=== PATIENT | male | born 1955 | race Caucasian/White ===

== ENCOUNTER 2017-09-09 06:38 | Day surgery (SDC) | payer BC ==
[2017-09-04 12:54] VITALS: BMI 33.9
[~2017-09-09 06:38] MED LIST: LACTATED RINGERS 1,000 ML IV SCH
[2017-09-09 07:14] VITALS: RESP 18; TEMP 98.8
[2017-09-09] MEDS ORDERED: LACTATED RINGERS 1,000 ML IV ONE ×2 (07:21)
[2017-09-09] MEDS ORDERED: fentaNYL (PF) 50 MCG/ML 2 ML AMP ONE (07:43)
[2017-09-09] MEDS ORDERED: PROPOFOL 10 MG/ML 20 ML VIAL IV ONE (07:43)
--- NOTE | 2017-09-09 08:02 | P.GSHP ---
History of Present Illness H&P Date: 09/09/17 Chief Complaint: Screening colonoscopy This is a 62-year-old male referred from Dr. Singh. Patient safe for screening colonoscopy. Patient a previous colonoscopy 7 years ago which was found of colon polyps. Past Medical History Past Medical History: Hyperlipidemia, Hypertension History of Any Multi-Drug Resistant Organisms: None Reported Past Surgical History: Tonsillectomy Additional Past Surgical History / Comment(s): colonoscopies Past Anesthesia/Blood Transfusion Reactions: No Reported Reaction Smoking Status: Never smoker - Past Family History Father Family Medical History: Cancer Additional Family Medical History / Comment(s): lung Mother Family Medical History: CVA/TIA, Dementia Medications and Allergies Home Medications Medication Instructions Recorded Confirmed Type Aspirin 81 mg PO DAILY 09/04/17 09/04/17 History Atorvastatin [Lipitor] 20 mg PO DAILY 09/04/17 09/04/17 History DULoxetine HCL [Cymbalta] 30 mg PO DAILY 09/04/17 09/04/17 History Ergocalciferol (Vitamin D2) 50,000 unit PO WHITTAKER 09/04/17 09/04/17 History [Vitamin D2] Ramipril [Altace] 10 mg PO DAILY 09/04/17 09/04/17 History amLODIPine [Norvasc] 10 mg PO HS 09/04/17 09/04/17 History cloNIDine HCL [Catapres] 0.1 mg PO BID 09/04/17 09/04/17 History Allergies Allergy/AdvReac Type Severity Reaction Status Date / Time sulfamethoxazole Allergy Unknown Verified 09/04/17 12:19 [From Bactrim] trimethoprim [From Bactrim] Allergy Unknown Verified 09/04/17 12:19 Surgical - Exam Vital Signs Temp Pulse Resp BP Pulse Ox 98.8 F 96 18 162/89 96 09/09/17 07:13 09/09/17 07:13 09/09/17 07:13 09/09/17 07:13 09/09/17 07:13 - General well developed, no distress - Eyes PERRL - ENT normal pinna - Neck no masses - Respiratory normal expansion - Cardiovascular Rhythm: regular - Abdomen Abdomen: soft, non tender Assessment and Plan Assessment: History of colon polyps. We'll perform colonoscopy.
--- NOTE | 2017-09-09 08:21 | P.OP ---
Date of Procedure: 09/09/17 Preoperative Diagnosis: Screening colonoscopy Postoperative Diagnosis: Normal colon Procedure(s) Performed: Colonoscopy Anesthesia: MAC Surgeon: Jose Manuel Orozco Pathology: none sent Condition: stable Disposition: PACU Description of Procedure: PROCEDURE: The patient was placed on the endoscopy table in the lateral position. Digital rectal examination was performed which revealed no abnormalities. The prostate was symmetrical without nodules. Flexible colonoscope was then placed in the patient's anus and passed throughout the entire colon. The ileocecal valve was visualized. The cecum, ascending, transverse, descending and sigmoid colon were normal. The rectum was normal as well. There were no masses, polyps or diverticula noted in the entire colon. SUMMARY OF FINDINGS: Normal colonoscopy.
[2017-09-09 08:58] VITALS: BP 144/87; PULSE 63
== END 2017-09-09 09:25 | disposition home or self-care (01) ==
LOC: ORWHC2ENDO 06:38
PROVIDERS: ATTEND Surgery
DX: Z12.11 Encounter for screening for malignant neoplasm of colon (principal); Z86.010 Personal history of colon polyps; E78.00 Pure hypercholesterolemia, unspecified; F34.1 Dysthymic disorder; E78.5 Hyperlipidemia, unspecified; I10 Essential (primary) hypertension; E55.9 Vitamin D deficiency, unspecified; Z79.82 Long term (current) use of aspirin; Z79.899 Other long term (current) drug therapy; Z88.2 Allergy status to sulfonamides
CPT/HCPCS: J3010; J2704; G0105

== ENCOUNTER → 2017-12-24 | Outpatient (CLI) | payer BC ==
--- NOTE | 2017-12-24 15:27 | CONS ---
CONSULTATION DATE OF SERVICE: 12/24/2017 A 62-year-old gentleman who has been evaluated in the [facility] for episodes of out of dream movements during the sleep, snoring and awakenings from sleep. HISTORY OF PRESENT ILLNESS/SLEEP-WAKE EVALUATION: Patient referred problem with out of dream movements for about 7 years and that happen several times a week. His sleep schedule now when he is retired from 11:30 and to get up around 7 or 8 a.m. Usually no problems with falling asleep, although he has a TV in bedroom. According to his , he snores. He mentions that he wakes up with a dry mouth. Restless leg, sleep talking. He has positive history of kicking, swinging, yelling, swearing, had several episodes of falling out of bed, even bark like door during the sleep. He mentioned that he wakes up from sleep 5 times with episodes of nocturia 5 times. During the day, patient feels sleepy. [place] Sleepiness Scale significantly increased to 13. He may fall asleep in the middle of the afternoon and evening while watching TV. He feels restored after the naps and he may see vivid dreams during the naps. No history of hypnagogic hallucinations. Many years ago episodes of sleep paralysis. No muscle weakness anywhere and the body's reaction of motions or laughing, but sometimes had some episodes of heaviness in his head and dizziness in reactions of laughing. PAST MEDICAL HISTORY: Hypertension, hyperlipidemia, anxiety. PAST SURGICAL HISTORY: Tonsillectomy. MEDICATIONS: Amlodipine, atorvastatin, Clonidine, duloxetine, ramipril, ergocalciferol, aspirin. SOCIAL HISTORY: Negative for smoking or using alcohol. FAMILY HISTORY: Positive for hypertension, heart problems, hyperlipidemia, stroke, arthritis, sinus problems, weakness when excited, snoring, pneumoniae, headaches, cancer, diabetes, restless legs. REVIEW OF SYSTEMS: Multiple awakenings from sleep with nocturia, out of dream movements, sleepiness during the day. PHYSICAL EXAM: gentleman without distress. BP 131/72, HR 74, RR 18, height 5, 11-1/2, weight 251.4. Body mass index 34.5. NECK: 18-1/4 inches in circumference. Temperature 97.6, oxygen saturation at room air 96%. OROPHARYNX: Extremely low position of soft palate. Mallampati IV. Slight restriction of nasal breathing. ABDOMEN: Slightly obese. Neck Supple, no JVD. Thyroid is not palpable. LUNGS Clear to percussion and to auscultation. Good air exchange. No wheezing or rhonchi. HEART S1, S2 regular. No murmurs, gallops, or rubs. EXTREMITIES No clubbing or cyanosis. [employer] N[employer] Awake, alert, and oriented X3. Cranial nerves 2 to 7 intact. There is no fasciculation or atrophy. noted. No focal deficits observed. IMPRESSION: 1. Multiple episodes of out of dream movements with several episodes of falling out of bed, most probably a REM sleep behavioral disorder. 2. Snoring, multiple awakenings from sleep with a dry mouth and nocturia, extremely low position of soft palate, Mallampati IV, wide neck 18-1/4 inches in circumference, obstructive sleep apnea-hypopnea syndrome. 3. Obesity, body mass index 34.5. 4. Hypertension. 5. Hyperlipidemia. 6. History of anxiety. 7. Status post tonsillectomy. 8. Excessive daytime sleepiness, [place] Sleepiness Scale increased to 13. 9. Differential diagnosis should include hypersomnia, may increase risk for REM sleep behavioral disorder. PLAN: 1. Polysomnography for evaluation of patient's breathing during sleep. 2. CPAP/BiPAP titration if sleep study confirms obstructive sleep apnea-hypopnea syndrome. 3. Preferable position during sleep on the side. 4. No driving if patient feels any sleepiness. 5. I will see patient for follow up visit to explain results of testing and following plan. 6. We discussed safety precautions with the patient related to possibility of REM sleep behavioral disorder, out of dream movements, preferably to put mattress on the floor, close door, close windows, no access to the fire at night or guns in the home. Thank you very much for referring this patient for consultation. Sincerely, Akshat Wells MD, PhD, FAASM Diplomat of [place] [employer] [place] [employer] [facility] [place] MMSANTOSL / MILENAN: [phone] /
== END | disposition home or self-care (01) ==
LOC: SLEEP 13:26
PROVIDERS: ATTEND Internal Medicine
DX: G47.33 Obstructive sleep apnea (adult) (pediatric) (principal); I10 Essential (primary) hypertension; E78.5 Hyperlipidemia, unspecified; F41.9 Anxiety disorder, unspecified; E66.9 Obesity, unspecified; Z68.34 Body mass index [BMI] 34.0-34.9, adult; Z90.89 Acquired absence of other organs; Z79.82 Long term (current) use of aspirin; Z79.899 Other long term (current) drug therapy
CPT/HCPCS: 99211

== ENCOUNTER → 2018-04-23 | Outpatient (CLI) | payer BC ==
--- NOTE | 2018-04-23 14:03 | MR ---
EXAMINATION TYPE: MR cervical spine wo con DATE OF EXAM: 04/23/2018 COMPARISON: None HISTORY: Other spondylosis with radiculopathy TECHNIQUE: Multiplanar, multisequence images of the cervical spine were acquired. FINDINGS: The cervical spine vertebral bodies maintain normal vertebral body height and alignment. Th ere bryan cisterna magna noted as well as mucosal thickening that appears polypoid partially visualize d within the left maxillary sinus. Cervical cord signal appears within normal limits. Discogenic endp late changes and multilevel disc desiccation are seen. C2-C3: There is a small central disc osteophyte complex without spinal canal stenosis or neural olivier inal narrowing. C3-C4: There is a broad-based disc bulge and uncovertebral hypertrophy with facet arthropathy creatin g moderate left neural foraminal narrowing. This also creates mild spinal canal stenosis. No right ne ural foraminal narrowing. C4-C5: There is a small central disc herniation superimposed upon a broad-based disc bulge with uncov ertebral hypertrophy and facet arthropathy creating moderate bilateral neural foraminal narrowing and mild spinal canal stenosis. C5-C6: There is a left paracentral disc herniation superimposed upon a broad-based disc bulge. Uncove rtebral hypertrophy and facet arthropathy also contribute to severe left and moderate right neural fo raminal narrowing and moderate spinal canal stenosis. Ligamentum flavum flavum buckling is also seen posteriorly. C6-C7: There is a broad-based disc bulge, facet arthropathy and ligamentum flavum buckling. This resu lts in mild spinal canal stenosis and moderate left neural foraminal narrowing. Right neuroforamen is patent. C7-T1: No evidence for degenerative disc disease. No disc bulge/herniation or protrusion. No Canal stenosis. Foramina are patent bilaterally. IMPRESSION: 1. Small central disc herniation at C4-C5 vertebral post upon a broad-based disc bulge with degenerat kaur disc disease create moderate bilateral neural foraminal narrowing and mild spinal canal stenosis. 2. Multilevel moderate degenerative disc disease of the cervical spine create variable degrees of jen ral foraminal narrowing and mild spinal canal stenosis at C3-C4 and C6-C7 with moderate spinal canal stenosis at C5-C6. 3. Partially visualized left maxillary sinus polypoid mucosal thickening and probable bryan cisterna m agna.
== END | disposition home or self-care (01) ==
LOC: RADMRIMAIN 13:07
PROVIDERS: ATTEND Internal Medicine
DX: M48.02 Spinal stenosis, cervical region (principal); M50.121 Cervical disc disorder at C4-C5 level with radiculopathy
CPT/HCPCS: 72141

== ENCOUNTER 2020-04-06 19:33 | Emergency (ER) | payer BC ==
[2020-04-06 19:38] VITALS: RESP 18
[2020-04-06] MEDS ORDERED: MAG HYDROX/AL HYDROX/SIMETH 30 ML, HYOSCYAMINE ELIXIR 10 ML, LIDOCAINE VISCOUS 2% 10 ML PO STA ×3 (19:50)
--- NOTE | 2020-04-06 20:14 | ED ---
General Adult HPI - General Chief complaint: Chest Pain Stated complaint: Chest Pain Time Seen by Provider: 04/06/20 19:40 Source: patient Mode of arrival: ambulatory Limitations: no limitations - History of Present Illness Initial comments: 64 year-old male patient presents to the emergency department for evaluation of chest discomfort. Patient states he started this morning with a "pressure" in her midepigastric and lower chest region. States it felt like he had to burp. He states that he has been belching throughout the day but it has not relieved the pressure. He denies any pain in his back. Denies nausea, vomiting, shortness of breath, or dizziness. He states he did take an omeprazole, tylenol, and tums today throughout the day without relief. He spoke to his physician who wanted him to come in for evaluation. He does have past history significant for hypertension and hyperlipidemia. Heart disease in his father and brother. Patient denies any recent rash, fever, chills, cough, diarrhea, constipation, back pain, numbness, tingling, dizziness, weakness, hematuria, dysuria, urinary urgency, urinary frequency, headache, visual changes, or any other complaints. - Related Data Home Medications Medication Instructions Recorded Confirmed Atorvastatin [Lipitor] 20 mg PO DAILY 09/04/17 04/06/20 Ergocalciferol (Vitamin D2) 50,000 unit PO WHITTAKER 09/04/17 04/06/20 [Vitamin D2] Ramipril [Altace] 10 mg PO DAILY 09/04/17 04/06/20 amLODIPine [Norvasc] 10 mg PO DAILY 09/04/17 04/06/20 cloNIDine HCL [Catapres] 0.1 mg PO BID 09/04/17 04/06/20 Acetaminophen Tab [Tylenol Tab] 500 mg PO Q6H PRN 04/06/20 04/06/20 Calcium Carbonate [Tums] 1,000 mg PO TID PRN 04/06/20 04/06/20 Levothyroxine Sodium [Synthroid] 25 mcg PO DAILY 04/06/20 04/06/20 Omeprazole Magnesium [PriLOSEC OTC] 40 mg PO BID PRN 04/06/20 04/06/20 Sertraline HCl [Zoloft] 100 mg PO HS 04/06/20 04/06/20 Allergies Allergy/AdvReac Type Severity Reaction Status Date / Time sulfamethoxazole Allergy Unknown Verified 04/06/20 20:37 [From Bactrim] trimethoprim [From Bactrim] Allergy Unknown Verified 04/06/20 20:37 Review of Systems ROS Statement: Those systems with pertinent positive or pertinent negative responses have been documented in the HPI. ROS Other: All systems not noted in ROS Statement are negative. Past Medical History Past Medical History: Hyperlipidemia, Hypertension History of Any Multi-Drug Resistant Organisms: None Reported Past Surgical History: Tonsillectomy Additional Past Surgical History / Comment(s): colonoscopies Past Anesthesia/Blood Transfusion Reactions: No Reported Reaction Smoking Status: Never smoker Past Alcohol Use History: None Reported Past Drug Use History: None Reported - Past Family History Father Family Medical History: Cancer Additional Family Medical History / Comment(s): lung Mother Family Medical History: CVA/TIA, Dementia General Exam Limitations: no limitations General appearance: alert, in no apparent distress, other (This is a well- developed, well-nourished adult male patient in no acute distress. Vital signs upon presentation are temperature 97.9F, pulse 91, respirations 18, blood pressure 199/76, pulse ox 98% on room air) Eye exam: Present: normal appearance, PERRL, EOMI. Absent: scleral icterus, conjunctival injection, periorbital swelling ENT exam: Present: normal exam, normal oropharynx, mucous membranes moist Respiratory exam: Present: normal lung sounds bilaterally. Absent: respiratory distress, wheezes, rales, rhonchi, stridor Cardiovascular Exam: Present: regular rate, normal rhythm, normal heart sounds. Absent: systolic murmur, diastolic murmur, rubs, gallop, clicks GI/Abdominal exam: Present: soft, normal bowel sounds. Absent: distended, tenderness, guarding, rebound, rigid Neurological exam: Present: alert, oriented X3, CN II-XII intact Psychiatric exam: Present: normal affect, normal mood Skin exam: Present: warm, dry, intact, normal color. Absent: rash Course Vital Signs 04/06/20 19:34 Temperature 97.9 F Pulse Rate 91 Respiratory 18 Rate Blood Pressure 199/76 O2 Sat by Pulse 98 Oximetry EKG Findings - EKG Comments: EKG Findings:: EKG obtained at 1945 shows normal sinus rhythm with a ventricular rate of 80, IL interval 192, QRS duration 106, QT 384, QTC 442. No evidence of ST elevation or depression. Medical Decision Making - Medical Decision Making 64-year-old male patient presents to the emergency department today for evalua tion of discomfort to the midepigastric and lower chest region. Physical examination revealed soft nontender abdomen. Labs reviewed and revealed white blood cell count 11.2. Glucose 130. Negative troponin. EKG showed normal sinus with no ST elevation or depression. Chest x-ray was negative. Patient was given a GI cocktail. Upon reevaluation he still reports a very mild faint discomfort but no pain. He will be discharged to follow up with his primary care physician, does have an appointment on Thursday. Return parameters were discussed in detail. He verbalizes understanding and agrees with this plan. Case discussed with Dr. Fang. - Lab Data Result diagrams: 04/06/20 20:10 04/06/20 20:10 Lab Results 04/06/20 04/06/20 04/06/20 Range/Units 20:10 20:10 20:10 WBC 11.2 H (3.8-10.6) k/uL RBC 4.47 (4.30-5.90) m/uL Hgb 13.5 (13.0-17.5) gm/dL Hct 38.5 L (39.0-53.0) % MCV 85.9 (80.0-100.0) fL MCH 30.1 (25.0-35.0) pg MCHC 35.0 (31.0-37.0) g/dL RDW 12.8 (11.5-15.5) % Plt Count 233 (150-450) k/uL MPV 7.1 Neutrophils % 68 % Lymphocytes % 21 % Monocytes % 7 % Eosinophils % 2 % Basophils % 1 % Neutrophils # 7.6 (1.3-7.7) k/uL Lymphocytes # 2.4 (1.0-4.8) k/uL Monocytes # 0.8 (0-1.0) k/uL Eosinophils # 0.2 (0-0.7) k/uL Basophils # 0.1 (0-0.2) k/uL PT 10.1 (9.0-12.0) sec INR 0.9 (<1.2) APTT 24.5 (22.0-30.0) sec Sodium 138 (137-145) mmol/L Potassium 4.3 (3.5-5.1) mmol/L Chloride 102 (98-107) mmol/L Carbon Dioxide 26 (22-30) mmol/L Anion Gap 10 mmol/L BUN 16 (9-20) mg/dL Creatinine 0.97 (0.66-1.25) mg/dL Est GFR (CKD-EPI)AfAm >90 (>60 ml/min/1.73 sqM) Est GFR (CKD-EPI)NonAf 83 (>60 ml/min/1.73 sqM) Glucose 130 H (74-99) mg/dL Calcium 9.6 (8.4-10.2) mg/dL Magnesium 2.2 (1.6-2.3) mg/dL Total Bilirubin 0.8 (0.2-1.3) mg/dL AST 24 (17-59) U/L ALT 22 (4-49) U/L Alkaline Phosphatase 100 (38-126) U/L Troponin I (0.000-0.034) ng/mL Total Protein 7.4 (6.3-8.2) g/dL Albumin 4.7 (3.5-5.0) g/dL Lipase 93 (23-300) U/L 04/06/20 Range/Units 20:10 WBC (3.8-10.6) k/uL RBC (4.30-5.90) m/uL Hgb (13.0-17.5) gm/dL Hct (39.0-53.0) % MCV (80.0-100.0) fL MCH (25.0-35.0) pg MCHC (31.0-37.0) g/dL RDW (11.5-15.5) % Plt Count (150-450) k/uL MPV Neutrophils % % Lymphocytes % % Monocytes % % Eosinophils % % Basophils % % Neutrophils # (1.3-7.7) k/uL Lymphocytes # (1.0-4.8) k/uL Monocytes # (0-1.0) k/uL Eosinophils # (0-0.7) k/uL Basophils # (0-0.2) k/uL PT (9.0-12.0) sec INR (<1.2) APTT (22.0-30.0) sec Sodium (137-145) mmol/L Potassium (3.5-5.1) mmol/L Chloride (98-107) mmol/L Carbon Dioxide (22-30) mmol/L Anion Gap mmol/L BUN (9-20) mg/dL Creatinine (0.66-1.25) mg/dL Est GFR (CKD-EPI)AfAm (>60 ml/min/1.73 sqM) Est GFR (CKD-EPI)NonAf (>60 ml/min/1.73 sqM) Glucose (74-99) mg/dL Calcium (8.4-10.2) mg/dL Magnesium (1.6-2.3) mg/dL Total Bilirubin (0.2-1.3) mg/dL AST (17-59) U/L ALT (4-49) U/L Alkaline Phosphatase (38-126) U/L Troponin I <0.012 (0.000-0.034) ng/mL Total Protein (6.3-8.2) g/dL Albumin (3.5-5.0) g/dL Lipase (23-300) U/L - Radiology Data Radiology results: report reviewed, image reviewed Two-view x-ray of the chest is obtained. Report reviewed in its entirety. Impression by Dr. Ayala shows no active cardiopulmonary disease. Normal heart. Disposition Clinical Impression: Chest pain Disposition: HOME SELF-CARE Condition: Good Instructions (If sedation given, give patient instructions): Chest Pain (ED), Indigestion (ED) Additional Instructions: Follow-up with your primary care physician Thursday as you have planned. Return to the emergency department for any new, worsening, or concerning symptoms. Is patient prescribed a controlled substance at d/c from ED?: No Referrals: Helen Ahn MD [Primary Care Provider] - 1-2 days Time of Disposition: 21:09
[2020-04-06 20:19] LABS: Basophils # (A) 0.1 k/uL (0-0.2); Basophils % (A) 1 %; Eosinophils # (A) 0.2 k/uL (0-0.7); Eosinophils % (A) 2 %; HCT 38.5 % (39.0-53.0); HGB 13.5 gm/dL (13.0-17.5); Lymphocytes # (A) 2.4 k/uL (1.0-4.8); Lymphocytes % (A) 21 %; MCH 30.1 pg (25.0-35.0); MCV 85.9 fL (80.0-100.0); Mean Platelet Volume 7.1; Monocytes # (A) 0.8 k/uL (0-1.0); Monocytes % (A) 7 %; Neutrophils # (A) 7.6 k/uL (1.3-7.7); Neutrophils % (A) 68 %; Platelet Count 233 k/uL (150-450); RBC 4.47 m/uL (4.30-5.90); RDW 12.8 % (11.5-15.5); WBC 11.2 k/uL (3.8-10.6)
[2020-04-06 20:27] LABS: ALT 22 U/L (4-49); AST 24 U/L (17-59); African American GFR (CKD) >90 (>60 ml/min/1.73 sqM); Albumin 4.7 g/dL (3.5-5.0); Alkaline Phosphatase 100 U/L (38-126); Anion Gap 10 mmol/L; Blood Urea Nitrogen 16 mg/dL (9-20); Calcium 9.6 mg/dL (8.4-10.2); Carbon Dioxide 26 mmol/L (22-30); Chloride 102 mmol/L (98-107); Glucose 130 mg/dL (74-99); Lipase 93 U/L (23-300); Magnesium 2.2 mg/dL (1.6-2.3); Non-African American GFR(CKD) 83 (>60 ml/min/1.73 sqM); Potassium 4.3 mmol/L (3.5-5.1); Sodium 138 mmol/L (137-145); Total Bilirubin 0.8 mg/dL (0.2-1.3); Total Protein 7.4 g/dL (6.3-8.2)
--- NOTE | 2020-04-06 20:27 | XR ---
EXAMINATION TYPE: XR chest 2V DATE OF EXAM: 04/06/2020 COMPARISON: NONE HISTORY: Chest pain TECHNIQUE: 2 views FINDINGS: Heart is normal. Lungs are clear of infiltrate. There is no pleural effusion. There are no hilar masses. Thoracic aorta is atheromatous. There are chest leads. Bony thorax is intact. IMPRESSION: No active cardiopulmonary disease. Normal heart.
[2020-04-06 20:28] LABS: INR 0.9 (<1.2); Partial Thromboplastin Time 24.5 sec (22.0-30.0); Prothrombin Time 10.1 sec (9.0-12.0)
[2020-04-06 21:24] VITALS: BP 156/79; PULSE 65; TEMP 98
== END 2020-04-06 21:20 | disposition home or self-care (01) ==
LOC: EC 19:33
DX: R07.89 Other chest pain (principal); E78.5 Hyperlipidemia, unspecified; I10 Essential (primary) hypertension; Z79.899 Other long term (current) drug therapy; Z88.1 Allergy status to other antibiotic agents; Z88.2 Allergy status to sulfonamides; Z82.49 Family history of ischemic heart disease and other diseases of the circulatory system
CPT/HCPCS: 36415; 71046; 80053; 83690; 83735; 84484; 85025; 85610; 85730; 93005; 99285

== ENCOUNTER → 2022-07-31 | Outpatient (CLI) | payer MEDICARE, BC ==
--- NOTE | 2022-07-31 09:51 | MR ---
EXAMINATION TYPE: MR brain and iac wo/w con DATE OF EXAM: 07/31/2022 COMPARISON: CT brain 04/24/2011 HISTORY: Tinnitus Right Ear TECHNIQUE: Multiplanar, multisequence images of the brain and brainstem is performed without and with IV contras t, utilizing 11 mL intravenous Gadavist . FINDINGS: Diffusion weighted images demonstrate no evidence of a recent infarct or other diffusion ab normality. There is mild generalized degenerative change with numerous focal as well as mild diffuse periventricular deep white matter areas of abnormal signal which are nonspecific and most remote isc hemia. Abnormal signal seen within the julienne is nonspecific suggestive of ischemia. Midline structures demonstrate normal morphology. The craniocervical junction appears within normal limits. Post contrast images demonstrate no abnormal enhancement. No evidence of cerebellopontine an gle mass or acoustic schwannoma The dural venous sinuses appear patent. The visualized sinuses demonstrate mucous retention cyst or polyp in the left lower sinus and mild ch anges of chronic sinusitis in the ethmoid air cells and the globes are intact. Prominent cisterna mag na incidentally noted. IMPRESSION: 1. No evidence of cerebellopontine angle mass or acoustic schwannoma. 2. Degenerative and remote ischemic changes as discussed above. 3. Chronic sinusitis.
== END | disposition home or self-care (01) ==
LOC: RADMRIMAIN 08:32
PROVIDERS: ATTEND Otolaryngology
DX: J32.9 Chronic sinusitis, unspecified (principal); J34.89 Other specified disorders of nose and nasal sinuses; H93.11 Tinnitus, right ear
CPT/HCPCS: 70553; A9585